=== PATIENT | female | born 1945 | race Caucasian/White ===

== ENCOUNTER 2023-04-27 22:02 | Emergency (ER) | payer MEDICARE, OTHER, SELFPAY ==
[2023-04-27 22:05] VITALS: BP 133/93
[2023-04-27 22:23] LABS: % Basophils 0.6 % (0-2); % Immature Granulocytes 0.6 % (0-0.5); % Lymphocytes 6.1 % (20.5-51.1); % Monocytes 10.2 % (1.7-9.3); % Neutrophils 82.5 % (42.2-75.2); Absolute Lymphocytes 0.4 10^3/uL (1.2-3.4); Absolute Monocytes 0.6 10^3/uL (0.1-0.6); Absolute Neutrophils 5.2 10^3/uL (1.4-6.5); Hematocrit 35.7 % (37.0-47.0); Hemoglobin 12.7 g/dL (12.0-16.0); Mean Corp Hgb Conc. 35.6 g/dL (33.0-37.0); Mean Corpuscular Hgb 31.8 pg (27.0-31.0); Mean Corpuscular Volume 89.5 fL (81.0-99.0); Mean Platelet Volume 9.3 fL (7.4-10.4); Nucleated Red Blood Cells % 0 %; Platelet Count 181 10^3/uL (130-400); Red Blood Cell Count 3.99 10^6/uL (4.20-5.40); Red Cell Dist. Width 13.1 % (11.5-14.5); White Blood Cell Count 6.3 10^3/uL (4.8-10.8)
[2023-04-27 22:42] LABS: ALT (SGPT) 119 U/L (0-35); AST (SGOT) 158 U/L (14-36); Albumin 3.6 g/dl (3.5-5.0); Alkaline Phosphatase 123 U/L (38-126); Blood Urea Nitrogen 17 mg/dl (7-17); Calcium 8.7 mg/dl (8.4-10.2); Carbon Dioxide 29 mmol/L (22-30); Glucose 160 mg/dl (70-99); Potassium 3.7 mmol/L (3.5-5.1); Sodium 131 mmol/L (135-145); Total Bilirubin 0.8 mg/dl (0.2-1.3); Total Protein 6.5 g/dl (6.3-8.2); eGFR > 60.00
[2023-04-27 22:47] LABS: Chloride 94 mmol/L (98-107)
--- NOTE | 2023-04-27 23:39 | ED.GENMED ---
History of Present Illness
General
Chief Complaint: Cold/Flu/URI Symptoms
Source: patient
Exam Limitations: none
Time Seen by Provider: 04/27/23 23:09
Travel History
Have you had any contact with someone who has COVID-19?: No
Do you have any symptoms of coronavirus? Fever > 100 degrees, chills, cough, shortness of breath, sore throat, loss of taste or smell, muscle aches, or headache?: No
History of Present Illness
History of Present Illness:
This is a 78 year old female that comes in with c/o SOB and nausea. States that this started last night and that she has felt SOB, has a cough, Sore throat and nauseated. States that she has also vomited. Denies any fever, chills, chest pain, abd
pain, diarrhea, headache, dizziness, urinary burning.
Past History
Past History
ED Past Medical History: HTN
ED Past Surgical History: None
Social History
Tobacco: Non-smoker
Alcohol: Occasional
Personal:
Living: with family
Review of Systems
Review of Systems
All Other Systems: ROS reviewed and negative except as documented in HPI and ROS
Constitutional: Denies fever or chills
EENT: Reports sore throat
Respiratory: Reports cough and trouble breathing
Cardiac: Reports no symptoms; Denies chest pain
ABD/GI: Reports nausea and vomiting; Denies abdominal pain or diarrhea
: Reports no symptoms; Denies dysuria, frequency or urgency
Musculoskeletal: Reports no symptoms
Skin: Reports no symptoms
Neurological: Reports no symptoms; Denies dizzy or headache
Psychiatric: Reports no symptoms
Phy Exam
General Physical Exam
General Presentation: no apparent distress
General age: appears stated age
General Skin: warm and dry
General Habitus: elderly
General Mental: alert
General Hydration: dry mucous membranes
ENT Exam
ENT Exam: TM's normal, pharynx normal and neck supple
Eye Exam
Eye Exam: EOMI
Cardiovascular Exam
Cardiovascular Exam: regular rate/rhythm, no edema and normal peripheral pulses
Pulmonary Exam
Pulmonary Exam: no respiratory distress, no rales, chest non tender, no crackles, no rhonchi and other (Faint exp wheezing throughout, Dry cough noted)
Gastrointestinal Exam
Gastrointestinal Exam: normal bowel sounds, non tender, soft, no organomegaly, no pulsatile mass and non distended
Musculoskeletal Exam
Musculoskeletal Exam: full ROM
Skin Exam
Skin Exam: normal color, warm/dry, no rash and no petechia
Psychiatric Exam
Psychiatric Exam: normal mood/affect
Course
Orders/Labs/Results
Orders:
Orders
04/27/23 22:08
CR Chest - 2 Views Urgent
Comment:
Reason For Exam: cough
04/27/23 22:16
Complete Blood Count/With Diff Urgent
Comprehensive Metabolic Panel Urgent
Lactic Acid Urgent
Influenza A+B Rapid Molecular Urgent
MALINA Source: Nasal Swab
Specimen Description:
04/27/23 23:38
0.9% Sodium Chloride 1000 ml [Nss] 1,000 ml IV BOLUS
Acetaminophen [Tylenol] 1,000 mg PO NOW STA
04/27/23 23:41
Ondansetron Injectable [Zofran] 4 mg IV NOW STA
04/27/23 23:42
Ipratropium/Albuterol Sulfate [Duoneb] 3 ml INH R NOW ONE
Abnormal Lab Results
04/27/23
22:16
RBC 3.99 L 10^6/uL
(4.20-5.40)
Hct 35.7 L %
(37.0-47.0)
MCH 31.8 H pg
(27.0-31.0)
Absolute Lymphs (auto) 0.4 L 10^3/uL
(1.2-3.4)
Immature Gran % 0.6 H %
(0-0.5)
Neutrophils % 82.5 H %
(42.2-75.2)
Lymphocytes % 6.1 L %
(20.5-51.1)
Monocytes % 10.2 H %
(1.7-9.3)
Sodium 131 L mmol/L
(135-145)
Chloride 94 L mmol/L
(98-107)
Glucose 160 H mg/dl
(70-99)
AST 158 H U/L
(14-36)
ALT 119 H U/L
(0-35)
04/27/23 22:16
04/27/23 22:16
Sodium slightly low. Chloride low. Glucose nonfasting. AST/ALT elevation. Positive for influenza A
Vital Signs
Initial and Last Documented VS:
Initial Vital Signs
Temp Pulse Resp BP Pulse Ox
98.5 F 114 20 133/93 94
04/27/23 22:05 04/27/23 22:05 04/27/23 22:05 04/27/23 22:05 04/27/23 22:05
Last Documented Vital Signs
Temp Pulse Resp BP Pulse Ox
98.5 F 114 20 133/93 94
04/27/23 22:05 04/27/23 22:05 04/27/23 22:05 04/27/23 22:05 04/27/23 22:05
MDM/Problems Addressed
Differential Diagnosis Includes:
COVID, Influenza. PNA
MDM/Problems Addressed:
This is a 78 year old female that comes in with c/o nausea and SOB. States that this started last night.
Will get labs. Chest x-ray. Duo neb and give IV fluids with Tylenol
Back into see patient. Patient states that she is feeling much better and that the nausea is gone. Will give patient a prescription for Zofran. Encouraged patient to increase her water intake to 8-8oz glasses daily. Patient to use Tylenol or
Ibuprofen for the fever. Oxygen saturation at this time is 93% on room air. Return with any concerns.
Chronic conditions affecting care:
NA
Acute Exacerbation and/or Progression of Chronic Illness:
NA
*Radiology
Radiology exam reviewed: preliminary read by ED provider (Chest- Negative for active disease)
*Pulse Oximetry
Patient hypoxic: no
*EKG
Interpreted by ED Provider?: NA
Rate: EKG- N/A
*Hairspring Studder Interpretation
Rate: Hairspring Studder- N/A
*Critical Care Note
Total Time (30-74mins, 75-104mins- exclusive of procedures): Not Applicable
ED Attending Note
-
Portions of this chart may have been created with voice recognition software.� Occasional wrong word or��sound alike� substitutions may have occurred due to the inherent limitations of voice recognition software.
Discharge Plan
Departure
Patient Disposition: Home (Routine Discharge)
Date of Disposition: 04/28/23
Time of Disposition: 01:09
Patient with high blood pressure during this ER visit?: Yes
Condition: Good
Covid-19: Not Applicable
Discharge Problem:
Influenza A
Instructions: Flu, Adult (DC), BLOOD PRESSURE
Prescriptions:
New
ondansetron 4 mg tablet,disintegrating
4 mg PO Q8H PRN (Reason: nausea and vomiting) Qty: 7 0RF
Referrals:
Lulu Ruano MD [Family Provider] - As needed
Activity Restrictions/Additional Instructions:
As discussed, your blood work shows that your liver enzymes are elevated. This can be due to a viral illness. Please have your family doctor recheck your liver enzymes after you have recovered. You have influenza A which is a virus. Please increase
your water intake to 8-8oz glasses daily. You may take Tylenol 1000mg every 6 hours for fever and/or Ibuprofen 600mg every 6 hours with food for pain. IF YOU HAVE INCREASED SHORTNESS OF BREATH OR YOU HAVE ANY OTHER CONCERNS PLEASE RETURN TO THE
EMERGENCY ROOM.
Interventions
Interventions:
*Risk Screen - Suicide Last Done: 04/27/23 22:05
*General Assessment Last Done: 04/27/23 22:05
*Neglect/Abuse Screening Last Done: 04/27/23 22:05
ED- Fall Risk Assessment Last Done: 04/28/23 01:01
ED- Pulmonary Assessment Last Done: 04/28/23 01:01
[2023-04-27 23:48] VITALS: BMI 28.9
[2023-04-27] MEDS: ZOFRAN 4 MG IV (23:53)
[2023-04-27] MEDS: NSS 1000 IV (23:53)
[2023-04-27] MEDS: TYLENOL 1000 MG PO (23:54)
[2023-04-27] MEDS: DUONEB 3 ML INH (23:55)
[2023-04-28] MEDS: ZOFRAN ODT (ORALLY DISINTEGRATING) 4 MG PO (01:39)
== END 2023-04-28 02:43 | disposition home or self-care (01) ==
LOC: EMR 22:02
PROVIDERS: Emergency Medicine; EMERGENCY PHYSICIAN Emergency Medicine; FAMILY PHYSICIAN Family Medicine
DX: J10.1 Influenza due to other identified influenza virus with other respiratory manifestations (principal); R11.0 Nausea; I10 Essential (primary) hypertension
CPT/HCPCS: 99283; 94640; 71046; 80053; 83605; 85025; 87502

== ENCOUNTER → 2023-05-05 14:03 | Outpatient (REF) | payer MEDICARE, OTHER, SELFPAY | LOC: RAD 14:03 | PROVIDERS: ATTENDING PHYSICIAN Family Medicine | DX: R06.02 Shortness of breath (principal) | CPT/HCPCS: 71046 ==

== ENCOUNTER 2023-05-06 21:02 | Inpatient (IN) | payer MEDICARE, OTHER, SELFPAY ==
[2023-05-06] VITALS (7 sets, daily range): BP systolic 144–174; BP diastolic 85–154; BMI 26.6; BMI 27.7
[2023-05-06] MEDS: DUONEB 3 ML INHALATION (19:15)
[2023-05-06] MEDS: DECADRON 10 MG IV (19:18)
[2023-05-06 19:23] LABS: % Basophils 0.4 % (0-2); % Eosinophils 0.2 % (0-6); % Immature Granulocytes 1.2 % (0-0.5); % Lymphocytes 10.8 % (20.5-51.1); % Monocytes 14.5 % (1.7-9.3); % Neutrophils 72.9 % (42.2-75.2); Absolute Basophils 0.1 10^3/uL (0-0.2); Absolute Immature Granulocytes 0.2 10^3/uL (0-0.05); Absolute Lymphocytes 1.7 10^3/uL (1.2-3.4); Absolute Monocytes 2.2 10^3/uL (0.1-0.6); Absolute Neutrophils 11.1 10^3/uL (1.4-6.5); Hematocrit 34.4 % (37.0-47.0); Hemoglobin 12.5 g/dL (12.0-16.0); Mean Corp Hgb Conc. 36.3 g/dL (33.0-37.0); Mean Corpuscular Hgb 31.2 pg (27.0-31.0); Mean Corpuscular Volume 85.8 fL (81.0-99.0); Mean Platelet Volume 8.3 fL (7.4-10.4); Nucleated Red Blood Cells % 0 %; Platelet Count 446 10^3/uL (130-400); Red Blood Cell Count 4.01 10^6/uL (4.20-5.40); Red Cell Dist. Width 12.5 % (11.5-14.5); White Blood Cell Count 15.3 10^3/uL (4.8-10.8)
[2023-05-06] MEDS: ROCEPHIN 2000 MG IV (19:23)
[2023-05-06] MEDS: NSS 500 IV (19:31)
[2023-05-06] MEDS: ZITHROMAX INFUSION 250 IV (19:31)
--- NOTE | 2023-05-06 19:51 | ED.GENMED ---
History of Present Illness
General
Chief Complaint: Cold/Flu/URI Symptoms
Source: patient
Exam Limitations: none
Time Seen by Provider: 05/06/23 18:01
Nursing documentation reviewed up to this point in time: agreed with
Travel History
Have you had any contact with someone who has COVID-19?: No
Do you have any symptoms of coronavirus? Fever > 100 degrees, chills, cough, shortness of breath, sore throat, loss of taste or smell, muscle aches, or headache?: Yes
Symptoms:: cough/fever
History of Present Illness
History of Present Illness:
78-year-old female past ministry of hypertension presenting to the emergency department today with concerns of worsening shortness of breath and respiratory issues. She claims that she was diagnosed with the flu 7 days ago initially had mild upper
respiratory symptoms but worsening shortness of breath and cough over the past few days and outpatient x-ray yesterday and was diagnosed with pneumonia and started on an antibiotic. She has been taking this since yesterday without any improvement.
She had worsening symptoms today which are to come to the ER. Denies specific chest pain nausea vomiting fevers.
Past History
Past History
ED Past Medical History: HTN
ED Past Surgical History: None
Social History
Tobacco: Non-smoker
Alcohol: Occasional
Personal:
Living: with family
Review of Systems
Review of Systems
Allergies reviewed?: Yes
All Other Systems: ROS reviewed and negative except as documented in HPI and ROS
Phy Exam
Physical Exam
Physical Exam:
GENERAL: Alert , in no apparent distress
EYE: pupils equal and reactive
NECK: Supple, no significant adenopathy.
ENT: o/p clr, mmm.
CARDIAC: Regular rate and rhythm .
LUNGS: Diffuse expiratory wheezing
ABDOMEN: Soft, without focal tenderness, no r/g, no cvat
NEUROLOGICAL: Alert and oriented, no focal neuro deficits
SKIN: Warm and dry, skin intact.
MUSCULOSKELETAL: No edema, well perfused.
PSYCH: Normal and appropriate interaction.
Course
Orders/Labs/Results
Orders:
Orders
05/06/23 18:36
0.9% Sodium Chloride 500 ml [Nss] 500 ml IV BOLUS
Azithromycin 500 mg/250 ml [Zithromax Infusion] 500 mg in 250 ml IV NOW
CefTRIAXone [Rocephin] 2,000 mg IV NOW STA
Dexamethasone Sod Phosphate [Decadron] 10 mg IV NOW STA
Ipratropium/Albuterol Sulfate [Duoneb] 3 ml INHALATION R NOW ONE
05/06/23 19:08
CBC/With Diff [Complete Blood Count/With Diff] Urgent
CMP [Comprehensive Metabolic Panel] Urgent
Lactic Acid Q4H
Comment: CANCEL 2nd LACTIC ACID IF 1st LACTIC ACID IS LESS THAN 2
Blood Culture Q30M
MALINA Source: Blood/Venous
Specimen Description:
Blood Culture Q30M
MALINA Source: Blood/Venous
Specimen Description:
05/06/23 19:13
Sterile Water [Sterile Water For Injection] 20 ml .ROUTE .K-MED ONE
05/06/23 20:34
EKG [Electrocardiogram (*1)] Stat
Reason for Study: QTc Monitoring
05/06/23 20:35
Admit/Transfer Patient As Directed
Co-Sign Provider:
Level of Care: Inpatient admission
Assign to:: Telemetry
Physician / Group: franchesca grey
Diagnosis: pneumonia
Reason for Telemetry: Other
Other Reason for Telemetry: electrolyte imbalance
Date to Stop Telemetry: 05/08/23
Time to Stop Telemetry: 11:00
Reason for Hospitalization: pneumonia
Expected length of stay greater than two midnights?: Yes
ELOS- Estimated Length of Stay in days: 3
I certify the patient meets the requirements for IP care: Yes
05/06/23 20:36
Code Status As Directed
Resuscitation Status: Full Code
05/06/23 20:41
Urine Osmolality Random [Osmolality, Random Urine] Stat
Urine Sodium Stat
05/06/23 20:44
Strep pneumoniae Antigen Stat
MALINA Source: Urine
Specimen Description:
05/06/23 20:47
COVID-19 Antigen Stat
Source: Nasal Swab
Influenza A+B Rapid Molecular Stat
MALINA Source: Nasal Swab
Specimen Description:
RSV [Respiratory Syncytial Virus] Stat
MALINA Source: Nasal Swab
Specimen Description:
Date Specimen was Collected: 05/06/23
Time Specimen was Collected: 20:39
05/08/23 11:00
DC Protocol for Telemetry ONCE
Abnormal Lab Results
05/06/23
19:08
WBC 15.3 H 10^3/uL
(4.8-10.8)
RBC 4.01 L 10^6/uL
(4.20-5.40)
Hct 34.4 L %
(37.0-47.0)
MCH 31.2 H pg
(27.0-31.0)
Plt Count 446 H 10^3/uL
(130-400)
Abs Immat Gran (auto) 0.2 H 10^3/uL
(0-0.05)
Absolute Neuts (auto) 11.1 H 10^3/uL
(1.4-6.5)
Absolute Monos (auto) 2.2 H 10^3/uL
(0.1-0.6)
Immature Gran % 1.2 H %
(0-0.5)
Lymphocytes % 10.8 L %
(20.5-51.1)
Monocytes % 14.5 H %
(1.7-9.3)
Sodium 119 L* mmol/L
(135-145)
Chloride 81 L mmol/L
(98-107)
Carbon Dioxide 32 H mmol/L
(22-30)
Glucose 114 H mg/dl
(70-99)
Calcium 8.3 L mg/dl
(8.4-10.2)
AST 86 H U/L
(14-36)
ALT 69 H U/L
(0-35)
Alkaline Phosphatase 406 H U/L
(38-126)
Albumin 3.4 L g/dl
(3.5-5.0)
05/06/23 19:08
05/06/23 19:08
Vital Signs
Initial and Last Documented VS:
Initial Vital Signs
Temp Pulse Resp BP Pulse Ox
98.6 F 98 20 144/93 93
05/06/23 15:38 05/06/23 15:38 05/06/23 15:38 05/06/23 15:38 05/06/23 15:38
Last Documented Vital Signs
Temp Pulse Resp BP Pulse Ox
98.6 F 98 33 145/115 90
05/06/23 15:38 05/06/23 21:15 05/06/23 21:15 05/06/23 21:00 05/06/23 21:15
MDM/Problems Addressed
MDM/Problems Addressed:
78-year-old female presenting to the emergency department with concerns of worsening shortness of breath recent diagnosis of pneumonia yesterday started on doxycycline yesterday has taken 3 doses. Upon arrival initial pulse ox in the low 90s
patient does appear somewhat short of breath and tachypneic. Patient has diffuse expiratory wheezing with no history of asthma or COPD. Was started on steroids and given nebulizer also started on IV antibiotics. Labs additionally showed
hyponatremia of 119. Patient will be admitted for further treatment. She did have some improvement of symptoms after initial treatment.
*Critical Care Note
Total Time (30-74mins, 75-104mins- exclusive of procedures): Not Applicable
ED Attending Note
-
Portions of this chart may have been created with voice recognition software.� Occasional wrong word or��sound alike� substitutions may have occurred due to the inherent limitations of voice recognition software.
Discharge Plan
Departure
Patient Disposition: Admit
Date of Disposition: 05/06/23
Time of Disposition: 20:29
Admit to doctor: Yamila
Presentation/result/management discussed w/ accepting MD/DO: Hospitalist
Patient with high blood pressure during this ER visit?: No
Condition: Good
Covid-19: Not Applicable
Discharge Problem:
Acute hyponatremia, Hypoxemia, Pneumonia, Wheeze
Interventions
Interventions:
*Risk Screen - Suicide Last Done: 05/06/23 15:38
*General Assessment Last Done: 05/06/23 18:37
*Neglect/Abuse Screening Last Done: 05/06/23 15:38
ED- Fall Risk Assessment Last Done: 05/06/23 18:37
*ED COVID-19 Vaccine History Last Done: 05/06/23 15:38
ED- Pulmonary Assessment Last Done: 05/06/23 18:37
[2023-05-06 19:55] LABS: ALT (SGPT) 69 U/L (0-35); AST (SGOT) 86 U/L (14-36); Albumin 3.4 g/dl (3.5-5.0); Alkaline Phosphatase 406 U/L (38-126); Blood Urea Nitrogen 13 mg/dl (7-17); Calcium 8.3 mg/dl (8.4-10.2); Carbon Dioxide 32 mmol/L (22-30); Chloride 81 mmol/L (98-107); Estimated Creatinine Clearance 64 ml/min; Glucose 114 mg/dl (70-99); Potassium 3.6 mmol/L (3.5-5.1); Sodium 119 mmol/L (135-145); Total Protein 6.6 g/dl (6.3-8.2); eGFR > 60.00
--- NOTE | 2023-05-06 20:08 | HPS.HSE ---
Addendum entered and electronically signed by Chelly Orellana MD 05/06/23 20:52:
Hold HCTZ due to hyponatremia.
Addendum entered and electronically signed by Chelly Orellana MD 05/06/23 20:51:
Patient seen and examined independently with PUBLIC RELATIONS SUPERVISOR. 70-year-old female history of hypertension presenting with cough, shortness of breath, initially sore throat and nausea diagnosed with influenza on 04/27. She was started on doxycycline yesterday for
persistent symptoms and hypoxia. Chest x-ray from yesterday shows bibasilar airspace disease, anterior medial lung base in the lingula and right middle lobe consistent with early pneumonia. Likely patient has post influenza bacterial pneumonia.
Patient has bilateral wheezing on examination. Check sputum culture, MRSA, COVID. Ceftriaxone and doxycycline. Start dexamethasone, DuoNebs. Patient also with hyponatremia likely due to poor p.o. intake. Check urine sodium, osmolality. IV
fluids. 40 ounce fluid restriction.
Original Note:
Family Physician
-
Family Physician: Lulu Ruano MD
Chief Complaint
-
Short of breath
Cough
History of Present Illness
78-year-old with medical history of hypertension presented to us with productive cough with green sputum, short of breath/nausea worse with exertion for past 10 days. Patient was evaluated in the ER on 04/28. She was discharged from ER on Zofran.
She was tested positive for influenza A on 04/27/2023. Her symptoms persisted. No improvement with Mucinex and Tylenol. Yesterday chest x-ray was obtained as outpatient. She was noted to have pneumonia. Patient was initiated on oral doxycycline.
She took total of 3 doses. Patient stated still with no relief in her symptoms. Stated worsening short of breath. Denied chest pain . Patient denied headache, dizziness, syncopal episode patient denied fever. Patient denied abdominal pain,,
vomiting, diarrhea. she is nauseous. Stated very poor appetite. Denied dysuria hematuria.
On arrival to ER, patient hypoxic. 80s on room air. At present requiring 2 L of oxygen. Patient received a dose of Cipro and ceftriaxone. Patient also received nebulizer treatment, normal saline and Decadron admitting for further management.
Medical History
Past Medical History
Past Medical History: Reports Other
Additional Past Medical History:
Hypertension
Past Surgical History: Reports None
Social History
Tobacco: Non-smoker
Alcohol: Occasional
Drug: None
Personal:
Living: With Family
Family History
Family History: Not pertinent
Allergies / Home Medications
Allergies reflects when Allergies were last updated in [facility].
Home Medications with original date entered in [facility]
Allergy/Medication List:
Allergies
Allergy/AdvReac Type Severity Reaction Status Date / Time
propoxyphene HCl Allergy Nausea Verified 05/06/23 15:37
[From [facility]]
Home Medications
ondansetron 4 mg disintegrating tablet 4 mg PO Q8H PRN nausea and vomiting #7 tabs 04/28/23
Review of Systems
-
Constitutional: Reports No Symptoms
EENT: Reports No Symptoms
Respiratory: Reports Cough (Green sputum) and Trouble Breathing
Cardiac: Reports No Symptoms
Abdomen/GI: Reports Nausea
: Reports No Symptoms
Musculoskeletal: Reports No Symptoms
Skin: Reports No Symptoms
Neurological: Reports No Symptoms
Endocrine: Reports No Symptoms
Hematologic/Lymphatic: Reports No Symptoms
Psych: Reports No Symptoms
Physical Exam
Vital Signs
Vital Signs
Temp Pulse Resp BP Pulse Ox
98.6 F 107 32 174/154 97
05/06/23 15:38 05/06/23 19:45 05/06/23 19:45 05/06/23 19:10 05/06/23 19:30
Physical Exam
General: Well Developed, Well Nourished and No Apparent Distress
HEENT: NormoCephalic, Moist mucous membranes and Atraumatic
Respiratory: Wheezes
Cardiac: S1/S2 and Regular Rhythm; No Murmur or Rub
GI: Soft, Non Tender, Non Distended and Normal Bowel Sounds; No Organomegaly
Rectal: Deferred by Provider
Musculoskeletal: No Clubbing, No Cyanosis and No Edema
Skin: No Rash
Neuro: AO x 3 and Nonfocal/grossly intact
Psych: Calm
Laboratory Results
-
05/06/23 19:08
05/06/23 19:08
Laboratory Results
Lactic Acid 1.0 mmol/L (0.7-2.0) 05/06/23 19:08
Total Bilirubin 1.0 mg/dl (0.2-1.3) 05/06/23 19:08
AST 86 U/L (14-36) H 05/06/23 19:08
ALT 69 U/L (0-35) H 05/06/23 19:08
Alkaline Phosphatase 406 U/L (38-126) H 05/06/23 19:08
Data Reviewed
-
Diagnostic Radiology: Report Reviewed by me
Lab Data: Labs Reviewed by me
Impression/Plan
-
# Acute hypoxia likely from pneumonia
-Sepsis as evident by elevated WBCs, tachycardia
-80s on room air requiring, 2 L of oxygen
-chest x ray with Bibasilar airspace disease, anterior medial lung base, in the lingula and right middle lobe consistent with early pneumonia.(05/05)
-Continue supplemental oxygen to keep sat greater than 92
-Wean as tolerated
-Nebulizers as needed for short of breath and wheezing
-WBCs 15.3
-Blood culture sent from ER
-IV doxy and ceftriaxone
-albuterol prn sob/wheezing
-Decadron iv every 8hours
-Mucinex for cough
-Tylenol prn for fever/pain
-obtain covid, RSV, influenza
-normal saline continued
# Acute on chronic hyponatremia likely from poor oral intake
-Sodium 119
-fluid restriction
-ctm
-normal saline continued
# Chronic LFT elevation
-AST 86, ALT 69, ALK 406
-Continue to monitor
# Hypertension
-valsartan,hctz continued
# DVT prophylaxis
-Lovenox subcu
# CODE STATUS
-Full code
--- NOTE | 2023-05-06 20:52 | W.PN.UPDATE ---
Update Note
Progress Note Update
hold hctz due to hyponatremia
[2023-05-06 21:21] LABS: COVID-19 Antigen Negative (Negative)
[2023-05-06] MEDS: NSS 1000 IV (23:39)
[2023-05-06] MEDS: VENTOLIN NEBULES 2.5 MG INH (23:57)
[2023-05-07] VITALS (8 sets, daily range): BP systolic 117–169; BP diastolic 76–101; PULSE 100; O2SAT 95
[2023-05-07 01:06] LABS: Osmolality Urine 301 mOsm/kg (300-900)
[2023-05-07 01:18] LABS: Urine Sodium 37 mmol/L (30-90)
[2023-05-07] MEDS: DECADRON 4 MG IV ×3 (03:23→20:46)
[2023-05-07 07:27] LABS: Hematocrit 29.3 % (37.0-47.0); Hemoglobin 10.7 g/dL (12.0-16.0); Mean Corp Hgb Conc. 36.5 g/dL (33.0-37.0); Mean Corpuscular Hgb 31.4 pg (27.0-31.0); Mean Corpuscular Volume 85.9 fL (81.0-99.0); Mean Platelet Volume 8.4 fL (7.4-10.4); Platelet Count 407 10^3/uL (130-400); Red Blood Cell Count 3.41 10^6/uL (4.20-5.40); Red Cell Dist. Width 12.5 % (11.5-14.5); White Blood Cell Count 9.5 10^3/uL (4.8-10.8)
[2023-05-07 08:11] LABS: Blood Urea Nitrogen 11 mg/dl (7-17); Calcium 7.6 mg/dl (8.4-10.2); Carbon Dioxide 29 mmol/L (22-30); Chloride 89 mmol/L (98-107); Estimated Creatinine Clearance 73 ml/min; Glucose 138 mg/dl (70-99); Sodium 124 mmol/L (135-145); eGFR > 60.00
[2023-05-07] MEDS: VIBRAMYCIN 260 MG IV (08:44)
[2023-05-07] MEDS: DIOVAN 80 MG PO (08:44)
[2023-05-07] MEDS: MUCINEX 600 MG PO ×2 (08:44→20:46)
--- NOTE | 2023-05-07 10:55 | W.PN.HOSP.TC ---
Today's Communication/Plan
-
wean off o2 as possible
continue abx/steroids
Assessment / Plan
Assessment / Plan
1. Acute hypoxic respite insufficiency
Comfortable pneumonia
-Chest x-ray showing bibasilar airspace disease with other areas of lung involvement suggestive of early pneumonia
-Elevated WBC, remains afebrile
-Blood culture collected in ER
-COVID/influenza negative
-Maintain on IV Rocephin and doxycycline
-Wean off oxygen slowly as possible
-Patient denies of history of smoking/COPD, wheezing on exam. On empiric steroids
2. Acute on chronic hyponatremia
-Sodium of 119
-Likely secondary to hydrochlorothiazide
-Slowly improving with IVF
3. Elevated liver enzymes
-Minimal, present on evaluation last month as well
Essential HTN
Chronic anemia
DVT PPX - lovenox
Full code
Anticipated Discharge: Within 24 hours
Subjective/Interval History
-
Date of Service: May 07, 2023
Resting comfortably in bed
remains in o2
afebrile
Objective Data
-
Labs:
Laboratory Results
05/07/23
06:55
WBC 9.5
Hgb 10.7 L
Hct 29.3 L
Plt Count 407 H
Sodium 124 L
Potassium 4.0
Chloride 89 L
Carbon Dioxide 29
BUN 11
Creatinine 0.6
Glucose 138 H
Calcium 7.6 L
Vital Signs:
Vital Signs
Temp Pulse Resp BP Pulse Ox
97.2 F 94 17 117/89 96
05/07/23 07:00 05/07/23 07:00 05/07/23 07:00 05/07/23 07:00 05/07/23 07:00
I&O
05/06/23 05/07/23 05/08/23
06:59 06:59 06:59
Intake Total 0 / 0
Balance 0 / 0
Review of Systems
-
Respiratory: Reports Cough
Cardiac: Reports No Symptoms
Abdomen/GI: Reports No Symptoms
Physical Exam
-
General: Comfortable
HEENT: Oxygen
Respiratory: Wheezes
Cardiac: Regular Rhythm and S1/S2; Negative Murmur or Rub
GI: Soft, Nontender and Nondistended
Musculoskeletal: No Edema
Neuro: Awake, Alert, Oriented, No Motor Deficits and Nonfocal/Grossly Intact
Psych: Calm
[2023-05-07] MEDS: NSS 1000 IV (12:14)
[2023-05-07] MEDS: VENTOLIN NEBULES 2.5 MG INH ×2 (15:46→20:57)
[2023-05-07] MEDS: LOVENOX 40 MG SC (17:28)
[2023-05-07] MEDS: VIBRAMYCIN 100 MG PO (20:46)
[2023-05-07] MEDS: ROCEPHIN 1000 MG IV (20:46)
[2023-05-07] MEDS: FLUSH (NSS) 2 FLUSH IV (20:49)
[2023-05-07] MEDS: STERILE WATER FOR INJECTION 10 ML IV (20:57)
--- NOTE | 2023-05-07 22:00 | PTCARENOTE ---
Pt complained of cough, WAGE AND SALARY ADMINISTRATOR made aware, new order provided, see MAR.
[2023-05-07] MEDS: ANESTHETIC LOZENGE 1 LOZENGE PO (22:09)
[2023-05-08] VITALS (8 sets, daily range): BP systolic 135–174; BP diastolic 78–100
[2023-05-08] MEDS: NSS 1000 IV (00:35)
--- NOTE | 2023-05-08 04:15 | PTCARENOTE ---
Pt complained of unrelieved cough, FIXED WING AIRCRAFT FLIGHT ENGINEER made aware, new order provided, see MAR. Will continue to monitor.
[2023-05-08] MEDS: DECADRON 4 MG IV (04:16)
[2023-05-08] MEDS: ROBITUSSIN DM 5 ML PO (04:17)
[2023-05-08 07:40] LABS: Hematocrit 29.2 % (37.0-47.0); Hemoglobin 10.4 g/dL (12.0-16.0); Mean Corp Hgb Conc. 35.6 g/dL (33.0-37.0); Mean Corpuscular Hgb 31.7 pg (27.0-31.0); Mean Platelet Volume 8.3 fL (7.4-10.4); Platelet Count 537 10^3/uL (130-400); Red Blood Cell Count 3.28 10^6/uL (4.20-5.40); White Blood Cell Count 18.1 10^3/uL (4.8-10.8)
[2023-05-08 08:11] LABS: Blood Urea Nitrogen 14 mg/dl (7-17); Calcium 7.7 mg/dl (8.4-10.2); Carbon Dioxide 29 mmol/L (22-30); Chloride 99 mmol/L (98-107); Estimated Creatinine Clearance 73 ml/min; Glucose 151 mg/dl (70-99); Potassium 4.1 mmol/L (3.5-5.1); Sodium 130 mmol/L (135-145); eGFR > 60.00
[2023-05-08] MEDS: MUCINEX 600 MG PO ×2 (08:59→20:16)
[2023-05-08] MEDS: VIBRAMYCIN 100 MG PO ×2 (08:59→20:16)
[2023-05-08] MEDS: DIOVAN 80 MG PO (08:59)
[2023-05-08] MEDS: VENTOLIN NEBULES 2.5 MG INH (09:06)
[2023-05-08] MEDS: APRESOLINE 5 MG IV ×2 (09:10→09:47)
[2023-05-08 09:13] LABS: Glucose - Point of Care 143 mg/dl (70-99)
--- NOTE | 2023-05-08 09:13 | PTCARENOTE ---
pt C/O SOB and 'feeling worse' struggling to articulate in more detail. appears very anxious, tremors noted. BP 180/110 rechecked manually and got 170/100 HR 110-120. Attending notified. RR 26 98% on 2L Respiratory therapist at bedside with
treatment. attending now at bedside
[2023-05-08] MEDS: ALPRAZOLAM ODT 0.25 MG PO (09:47)
--- NOTE | 2023-05-08 12:43 | W.PN.HOSP.TC ---
Today's Communication/Plan
-
d/c steroids
maintain on prn xanax
cotninue abx
Assessment / Plan
Assessment / Plan
1. Acute hypoxic respite insufficiency
Community acquired pneumonia
-Chest x-ray showing bibasilar airspace disease with other areas of lung involvement suggestive of early pneumonia
-Elevated WBC, remains afebrile
-Blood culture collected in ER
-COVID/influenza negative
-Maintain on IV Rocephin and doxycycline
-Wean off oxygen slowly as possible
-stopping further steroids as patient is anxious
2. Acute on chronic hyponatremia
-Sodium of 119 at admit, improved to 130 now
-Likely secondary to hydrochlorothiazide
-Slowly improving with IVF
3. Elevated liver enzymes
-Minimal, present on evaluation last month as well
4. Anxiety
- patient anxious and not feeling well
- steroids might have been playing role, discontinued
- xanax prn ordered
Essential HTN
Chronic anemia
DVT PPX - lovenox
Full code
05/08 care plan discussed with patient's brother over the phone
Total time spent : 52 mins
Anticipated Discharge: Within 24 hours
Subjective/Interval History
-
Date of Service: May 08, 2023
patient not feeling well in the morning
having anxiety
o2 requirement stable
no other issues
Objective Data
-
Labs:
Laboratory Results
05/08/23
06:55
WBC 18.1 H
Hgb 10.4 L
Hct 29.2 L
Plt Count 537 H D
Sodium 130 L
Potassium 4.1
Chloride 99
Carbon Dioxide 29
BUN 14
Creatinine 0.6
Glucose 151 H
Calcium 7.7 L
Vital Signs:
Vital Signs
Temp Pulse Resp BP Pulse Ox
98.0 F 119 27 142/85 94
05/08/23 10:22 05/08/23 10:22 05/08/23 10:22 05/08/23 10:22 05/08/23 10:22
I&O
05/07/23 05/08/23 05/09/23
06:59 06:59 06:59
Intake Total 0 / 0 2790 / 2790
Balance 0 / 0 2790 / 2790
Review of Systems
-
Respiratory: Reports Trouble Breathing and Wheezing
Cardiac: Reports No Symptoms
Abdomen/GI: Reports No Symptoms
Physical Exam
-
General: Appears in Distress
HEENT: Oxygen
Respiratory: Wheezes
Cardiac: Regular Rhythm and S1/S2; Negative Murmur or Rub
GI: Soft, Nontender and Nondistended
Musculoskeletal: No Edema
Neuro: Awake, Alert, Oriented, No Motor Deficits and Nonfocal/Grossly Intact
Psych: Anxious
--- NOTE | 2023-05-08 12:43 | CM ---
Reviewed chart, attempted to meet with patient to obtain information for assessment, however, patient was not in room. As this was the case, placed a call to patient's primary contact, Kathy who answered and confirmed that it was a good time to
talk.
Kathy stated that patient is normally independent with her ADLs, self care, bathing, dressing, toileting and ambulation. Kathy stated that patient is very active and travels frequently as well as exercises on a treadmill a few times a week for half
an hour. Patient's primary contact stated that patient has been tremulous but it is not as bad or has not been as bad as it is now that she is not feeling well. Kathy relayed that if there was a possibility of understanding why she is shaky while
she is inpatient, that would be a big relief.
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 Kathy is there for assistance if need be.
Patient drives and can get to her appointments and does all her own shopping.
She has never had VN services or been to a SNF.
Patient is currently on o2 but normally isn't and does not have o2 at home. Will watch for o2 needs. Patient has a prescription plan and uses [facility] in [place] and her PCP is Dr. Lulu Ruano.
Kathy stated that the family has familiarity with some [facility]/SNFs, [facility], [facility], [facility] and [facility] and if indicated the family would like for her to transition to one of these SNFs if there is availability.
The family is also agreeable to VN services if indicated.
Plan: Case management will continue to follow and assist with discharge planning. Patient's family hopeful that patient can return home but will remain available to what is indicated.
[2023-05-08] MEDS: XANAX 0.5 MG PO (14:35)
[2023-05-08] MEDS: LOVENOX 40 MG SC (17:40)
[2023-05-08] MEDS: STERILE WATER FOR INJECTION 10 ML IV (20:16)
[2023-05-08] MEDS: ROCEPHIN 1000 MG IV (20:16)
[2023-05-09] VITALS (8 sets, daily range): BP systolic 146–174; BP diastolic 86–99; PULSE 110; O2SAT 97
[2023-05-09] MEDS: APRESOLINE 10 MG IV ×2 (00:39→20:03)
[2023-05-09] MEDS: XANAX 0.5 MG PO (01:02)
[2023-05-09 07:13] LABS: Hematocrit 32.2 % (37.0-47.0); Hemoglobin 11.5 g/dL (12.0-16.0); Mean Corp Hgb Conc. 35.7 g/dL (33.0-37.0); Mean Corpuscular Hgb 31.5 pg (27.0-31.0); Mean Corpuscular Volume 88.2 fL (81.0-99.0); Mean Platelet Volume 7.9 fL (7.4-10.4); Platelet Count 617 10^3/uL (130-400); Red Blood Cell Count 3.65 10^6/uL (4.20-5.40); Red Cell Dist. Width 13.1 % (11.5-14.5)
[2023-05-09 07:41] LABS: Blood Urea Nitrogen 18 mg/dl (7-17); Calcium 8.5 mg/dl (8.4-10.2); Carbon Dioxide 30 mmol/L (22-30); Chloride 101 mmol/L (98-107); Estimated Creatinine Clearance 73 ml/min; Glucose 97 mg/dl (70-99); Potassium 3.8 mmol/L (3.5-5.1); Sodium 134 mmol/L (135-145); eGFR > 60.00
[2023-05-09] MEDS: DIOVAN 80 MG PO (08:42)
[2023-05-09] MEDS: MUCINEX 600 MG PO ×2 (08:42→19:41)
[2023-05-09] MEDS: VIBRAMYCIN 100 MG PO ×2 (08:42→19:41)
--- NOTE | 2023-05-09 09:42 | W.PN.HOSP.TC ---
Today's Communication/Plan
-
lower dose oral steroids
continue abx
wean off o2
Assessment / Plan
Assessment / Plan
1. Acute hypoxic respite insufficiency
Community acquired pneumonia
Recent Flu A from 04/27
-Chest x-ray showing bibasilar airspace disease with other areas of lung involvement suggestive of early pneumonia
-Elevated WBC, remains afebrile
-Blood culture collected in ER
-Patient was positive for flu a on 04/27 recheck this admission negative. COVID-negative as well.
-Maintain on IV Rocephin and doxycycline
-Wean off oxygen slowly as possible
-Patient could not tolerate high-dose IV steroids. Continue to wheeze and will switch to oral prednisone 30 mg today
2. Acute on chronic hyponatremia
-Sodium of 119 at admit, improved to 134 today.
-Likely secondary to hydrochlorothiazide use.
-imroved with IVF
3. Elevated liver enzymes
-Minimal, present on evaluation last month as well
4. Anxiety
- patient anxious and not feeling well
- steroids might have been playing role, discontinued
- xanax prn ordered
Essential HTN
Chronic anemia
DVT PPX - lovenox
Full code
05/08 care plan discussed with patient's brother over the phone
Anticipated Discharge: 24 - 48 hours
Subjective/Interval History
-
Date of Service: May 09, 2023
Patient feeling subjectively better
Remains on oxygen 3 L through nasal cannula
Some sleep disturbance due to anxiety overnight
Objective Data
-
Labs:
Laboratory Results
05/09/23
06:32
WBC 16.0 H
Hgb 11.5 L
Hct 32.2 L
Plt Count 617 H
Sodium 134 L
Potassium 3.8
Chloride 101
Carbon Dioxide 30
BUN 18 H
Creatinine 0.5 L
Glucose 97
Calcium 8.5
Vital Signs:
Vital Signs
Temp Pulse Resp BP Pulse Ox
97.8 F 98 20 169/95 97
05/09/23 07:00 05/09/23 07:00 05/09/23 07:00 05/09/23 07:00 05/09/23 07:00
I&O
05/08/23 05/09/23 05/10/23
06:59 06:59 06:59
Intake Total 2790 / 2790 600 / 600 120 / 120
Balance 2790 / 2790 600 / 600 120 / 120
Review of Systems
-
Respiratory: Reports Cough and Trouble Breathing; Denies Hemoptysis
Cardiac: Reports No Symptoms
Abdomen/GI: Reports No Symptoms
Physical Exam
-
General: Negative Appears in Distress
HEENT: Oxygen (3 L NC)
Respiratory: Wheezes
Cardiac: Regular Rhythm and S1/S2; Negative Murmur or Rub
GI: Soft, Nontender and Nondistended
Musculoskeletal: No Edema
Neuro: Awake, Alert, Oriented, No Motor Deficits and Nonfocal/Grossly Intact
Psych: Calm
[2023-05-09] MEDS: DELTASONE 30 MG PO (11:07)
--- NOTE | 2023-05-09 15:46 | CM ---
Patient seen at bedside. IMM reviewed and signed form placed on chart. Patient is currently on O2 and does not have home O2. Patient may benefit from PT/OT assessment and family was asking about SNF per chart review. Therapy is recommending home
health as of today. CM will continue to follow for discharge planning needs.
Plan; home with VN; watch for home O2 needs and PT/OT recommendations
[2023-05-09] MEDS: LOVENOX 40 MG SC (17:29)
[2023-05-09] MEDS: STERILE WATER FOR INJECTION 10 ML IV (19:42)
[2023-05-09] MEDS: ROCEPHIN 1000 MG IV (19:42)
[2023-05-09] MEDS: ROBITUSSIN DM 5 ML PO (22:02)
[2023-05-10 00:05] VITALS: BP 176/94
[2023-05-10] MEDS: APRESOLINE 10 MG IV ×2 (00:18→04:07)
[2023-05-10] MEDS: XANAX 0.5 MG PO (01:29)
[2023-05-10 01:40] VITALS: BP 162/102
[2023-05-10 03:49] VITALS: BP 174/112
--- NOTE | 2023-05-10 04:17 | PTCARENOTE ---
@ 2002, pt's BP 165/95 HR107. PRN Hydralazine 10mg IV given (see mar).
@ 0005, manual BP 176/94 HR 105. YUKI Alcantara notified. Hydralazine 10mg IV ordered(see mar). @ 0140, manual BP 162/102. Pt stated she is feeling anxious. PRN Xanax 0.5mg given (see mar).
@ 0407, manual BP 162/92 HR 89. QUAL[employer] ASSURANCE Q[employer] LAB ANALYST stated okay to give PRN hydralazine 10mg IV (see mar). Pt asymptomatic and offering no complaints. Will continue plan of care.
[2023-05-10 06:41] VITALS: BP 148/96
[2023-05-10 06:47] LABS: Hematocrit 32.6 % (37.0-47.0); Hemoglobin 11.7 g/dL (12.0-16.0); Mean Corp Hgb Conc. 35.9 g/dL (33.0-37.0); Mean Corpuscular Hgb 31.5 pg (27.0-31.0); Mean Corpuscular Volume 87.6 fL (81.0-99.0); Platelet Count 636 10^3/uL (130-400); Red Blood Cell Count 3.72 10^6/uL (4.20-5.40); Red Cell Dist. Width 12.8 % (11.5-14.5); White Blood Cell Count 9.1 10^3/uL (4.8-10.8)
[2023-05-10 07:11] LABS: Blood Urea Nitrogen 17 mg/dl (7-17); Calcium 8.5 mg/dl (8.4-10.2); Carbon Dioxide 27 mmol/L (22-30); Chloride 97 mmol/L (98-107); Estimated Creatinine Clearance 73 ml/min; Glucose 102 mg/dl (70-99); Potassium 3.7 mmol/L (3.5-5.1); Sodium 134 mmol/L (135-145); eGFR > 60.00
[2023-05-10 07:30] VITALS: BP 150/96
[2023-05-10] MEDS: VIBRAMYCIN 100 MG PO (08:05)
[2023-05-10] MEDS: MUCINEX 600 MG PO (08:05)
[2023-05-10] MEDS: DIOVAN 80 MG PO (08:05)
[2023-05-10] MEDS: DELTASONE 30 MG PO (08:06)
--- NOTE | 2023-05-10 09:49 | W.PN.HOSP.TC ---
Today's Communication/Plan
-
d/c home
Assessment / Plan
Assessment / Plan
1. Acute hypoxic respite insufficiency - resolved
Community acquired pneumonia
Recent Flu A from 04/27
-Chest x-ray showing bibasilar airspace disease with other areas of lung involvement suggestive of early pneumonia
-Elevated WBC, remains afebrile
-Blood culture collected in ER
-Patient was positive for flu a on 04/27 recheck this admission negative. COVID-negative as well.
-Discharge patient with tapering course of oral prednisone.
-Providing short course of Omnicef therapy already had day 4/ of abx in hospital.
2. Acute on chronic hyponatremia
-Sodium of 119 at admit, improved to 134 today.
-Likely secondary to hydrochlorothiazide use.
-improved with IVF
3. Elevated liver enzymes
-Minimal, present on evaluation last month as well
4. Anxiety
- patient anxious and not feeling well
- steroids might have been playing role, discontinued
- Although not preferred in light of significant symptoms providing short course of Xanax at discharge. Advised patient to follow-up with primary care physician for further discussion if continues to have symptoms after being off of steroids.
Essential HTN
Chronic anemia
DVT PPX - lovenox
Full code
05/08 care plan discussed with patient's brother over the phone
More than 30 minutes spent in discharge including
Final examination of the patient
Summarizing hospital stay
Instructions for continuing care to all relevant caregivers
Preparation of discharge records, prescriptions, and referral forms
Total time spent (in minutes): 38 mins
Anticipated Discharge: Today
Subjective/Interval History
-
Date of Service: May 10, 2023
Patient off of oxygen
Have some cough, afebrile overnight
Reporting sleep disturbance and some anxiety issues in night
Objective Data
-
Labs:
Laboratory Results
05/10/23
06:18
WBC 9.1
Hgb 11.7 L
Hct 32.6 L
Plt Count 636 H
Sodium 134 L
Potassium 3.7
Chloride 97 L
Carbon Dioxide 27
BUN 17
Creatinine 0.5 L
Glucose 102 H
Calcium 8.5
Vital Signs:
Vital Signs
Temp Pulse Resp BP Pulse Ox
98.1 F 101 16 150/96 94
05/10/23 07:30 05/10/23 07:30 05/10/23 07:30 05/10/23 08:05 05/10/23 07:30
I&O
05/09/23 05/10/23 05/11/23
06:59 06:59 06:59
Intake Total 600 / 600 960 / 960
Balance 600 / 600 960 / 960
Review of Systems
-
Respiratory: Reports No Symptoms
Cardiac: Reports No Symptoms
Abdomen/GI: Reports No Symptoms
Physical Exam
-
General: Negative Appears in Distress
HEENT: Negative Oxygen
Respiratory: Clear to Auscultation
Cardiac: Regular Rhythm and S1/S2; Negative Murmur or Rub
GI: Soft, Nontender and Nondistended
Musculoskeletal: No Edema
Neuro: Awake, Alert, Oriented, No Motor Deficits and Nonfocal/Grossly Intact
Psych: Calm
--- NOTE | 2023-05-10 09:51 | W.DCSUMMARY ---
Discharge Summary
Discharge Data
Date of Admission: 05/06/23
Date of Discharge: 05/10/23
-
Pending Results: No
Hospital Course
Discharging Physician : Dr Shamar Romero
Disposition : Home
Primary care physician : Dr Lulu Ruano
Principal Discharge diagnosis :
Acute hypoxic respiratory insufficiency
Community-acquired pneumonia superimposed on influenza A infection
Acute on chronic hyponatremia
Elevated liver enzymes
Anxiety
Chronic Discharge diagnosis :
Essential hypertension
Chronic anemia
Hospital Course :
Patient is a 78-year-old female with above-mentioned past medical history came to ER for having new onset of shortness of breath, cough and sore throat. Patient was diagnosed for influenza A on April 27 and was sent to home with symptomatic care
from ER. Patient persisted to have symptoms and was started on doxycycline therapy on outpatient basis. Patient had an outpatient chest x-ray which showed bibasilar airspace disease involving right middle lobe consistent with pneumonia. In light
of worsening symptoms patient came to ER and patient was started on IV antibiotics for community-acquired pneumonia superimposed on influenza A infection. Patient was hypoxic and was requiring oxygen support through nasal cannula. Patient does not
have history of smoking/COPD although was wheezing and was required to be started on IV steroids. Patient did significant anxiety/sleep disturbance from high-dose IV steroid and steroid needed to be tapered down rapidly. Patient was requiring
Xanax as needed in the hospital for symptomatic care of anxiety as well. Patient had slow improvement of symptoms and required 4 days of hospitalization for pneumonia. At discharge patient been given 4 days of tapering steroids and 3 days of oral
antibiotics. Patient to follow-up with primary care physician in office and if persistent to have symptoms of anxiety may require further evaluation by psychiatry. Patient instructed to follow-up with pulmonology office as well as patient may have
component of COPD despite being a non-smoker.
Patient also had significant hyponatremia and admitted with sodium of 119. Patient on hydrochlorothiazide at home for blood pressure controlled and likely have hypovolemic hyponatremia. Hydrochlorothiazide was discontinued and patient was started
on normal saline IV fluid. Over next 3 days patient sodium normalized to 134. Patient instructed not to take hydrochlorothiazide moving forward.
Patient discharged home post medical stabilization
Important imaging findings :
None
Procedure findings :
None
Discharge Plan
-
Patient Disposition: Home (Routine Discharge)
Discharge Diagnosis/Procedures: Community acquired Pneumonia, Recent Flu A infection, Acute hypoxic respiratory insufficiency
Condition: Fair
Diet: Regular
Activity: As tolerated
Driving Restrictions: No driving for 24 hours
Bathing Restrictions: OK to Shower
Stop these medications:: Hydrochlorothiazide due to Hyponatremia
Activity Restrictions/Additional Instructions:
Please call Dr Nolan's office for new patient appointment
Referrals:
Jose Antonio Nolan MD [Active] - in four to six weeks
Lulu Ruano MD [Family Provider] - in one week
Prescriptions:
New
dextromethorphan-guaifenesin 10-100 mg/5 mL Syrup
5 ml PO Q6HPRN PRN (Reason: cough) Qty: 237 0RF
alprazolam 0.5 mg Tablet
0.5 mg PO .bid prn PRN (Reason: anxiety) Qty: 6 0RF
cefdinir 300 mg capsule
300 mg PO BID 6 Days Qty: 12 0RF
prednisone 10 mg Tablet
10 mg PO DIRECTED Qty: 6 0RF
Rx Instructions:
Take 2 Tabs daily x2 days THEN
Take 1 Tab daily x2 days and STOP.
Continued
valsartan 80 mg Tablet
80 mg PO DAILY
multivitamin Tablet
1 tab PO DAILY
doxycycline hyclate 100 mg capsule
100 mg PO BID
benzonatate 200 mg capsule
200 mg PO TID PRN (Reason: cough)
ascorbic acid (vitamin C) [Vitamin C] 500 mg Tablet
500 mg PO DAILY
Discontinued
hydrochlorothiazide 25 mg Tablet
25 mg PO DAILY
ondansetron HCl 8 mg tablet
8 mg PO Q8H PRN (Reason: nausea/vomiting)
Discharge Orders:
Discharge Patient (As Directed); Ordered 05/10/23
Ordered By: Shamar Romero
--- NOTE | 2023-05-10 10:03 | CM ---
Patient seen at bedside. Patient off of O2 and confirmed that she has a ride home and that she does not want VN supports at home. CM completed IMM with patient 05/09/23. CM will continue to follow for discharge planning needs.
Plan; no needs anticipated per patient
== END 2023-05-10 12:07 | disposition home or self-care (01) | DRG 871 ==
LOC: 3 WEST ACU 21:02
PROVIDERS: Physician Assistant; Registered Nurse; ADMITTING PHYSICIAN Student in an Organized Health Care Education/Training Program; ATTENDING PHYSICIAN Hospitalist; EMERGENCY PHYSICIAN Emergency Medicine; FAMILY PHYSICIAN Family Medicine
DX: A41.89 Other specified sepsis (principal); J10.00 Influenza due to other identified influenza virus with unspecified type of pneumonia; E87.1 Hypo-osmolality and hyponatremia; R09.02 Hypoxemia; F41.9 Anxiety disorder, unspecified; I10 Essential (primary) hypertension
CPT/HCPCS: 71046; 80048; 80053; 82962; 83605; 83935; 84300; 85025; 85027; 87040; 87070; 87449; 87502; 87807; 87811; 87899; 93005; 94640; 96365; 96375; 97116; 97163; 99284

== ENCOUNTER → 2023-09-08 11:17 | Outpatient (REF) | payer MEDICARE, OTHER, SELFPAY | LOC: HWWDC 11:17 | PROVIDERS: ATTENDING PHYSICIAN Family Medicine | DX: Z12.31 Encounter for screening mammogram for malignant neoplasm of breast (principal) | CPT/HCPCS: 77063; 77067 ==

== ENCOUNTER → 2024-09-02 15:31 | Outpatient (REF) | payer MEDICARE, OTHER, SELFPAY | LOC: WDC 15:31 | PROVIDERS: ATTENDING PHYSICIAN Family Medicine | DX: Z12.31 Encounter for screening mammogram for malignant neoplasm of breast (principal) | CPT/HCPCS: 77063; 77067 ==

== ENCOUNTER → 2024-09-28 07:28 | Outpatient (REF) | payer MEDICARE, OTHER, SELFPAY | LOC: RAD 07:28 | PROVIDERS: ATTENDING PHYSICIAN Family Medicine | DX: M81.0 Age-related osteoporosis without current pathological fracture (principal); Z78.0 Asymptomatic menopausal state | CPT/HCPCS: 77080 ==